=== PATIENT | female | born 1990 | race Hispanic/Latino ===

== ENCOUNTER 2018-09-29 05:38 | Inpatient (IN) | payer BC | END 2018-10-01 12:10 | disposition home or self-care (01) | LOC: LDH 05:38 → WSH 09:35 | PROC: 10D00Z1 Extraction of Products of Conception, Low, Open Approach (ICD-10-PCS; principal; 2018-09-29 07:30) | DX: O24.425 Gestational diabetes mellitus in childbirth, controlled by oral hypoglycemic drugs (principal); O34.211 Maternal care for low transverse scar from previous cesarean delivery; Z37.0 Single live birth; Z3A.38 38 weeks gestation of pregnancy ==

== ENCOUNTER 2024-05-16 17:00 | Inpatient (IN) | payer BC ==
[~2024-05-16] VITALS: Ht 167.6 cm; Wt 117.9 kg
[~2024-05-16 17:00] MED LIST: METF-444 PO; PNV11TAB5 PO
[2024-05-17 06:20] LABS: HEMATOCRIT 35.8 % (36-48); MEAN CORPUSCULAR HEMOGLOBIN 26.5 pg (27.0-33.0); MEAN CORPUSCULAR HGB CONC 32.4 g/dL (32.0-36.0); MEAN CORPUSCULAR VOLUME 81.9 fL (79-99); RED BLOOD CELL COUNT(AUTO) 4.37 MIL/uL (4.00-5.50); RED CELL DISTRIBUTION WIDTH 14.7 % (11.0-15.5); WHITE BLOOD COUNT (AUTO) 8.4 K/uL (4.8-10.8)
[2024-05-17 07:06] LABS: HIV 1&2 ANTIBODY Non-Reactive (Negative); HIV-1 p24 Antigen Non-Reactive (Negative)
[2024-05-17] MEDS: ceFAZolin SODIUM 1 GM VIAL IVP PRN (07:24)
[2024-05-17] MEDS: LACTATED RINGERS 1000ML 1,000 ML IV SCH (07:24)
[2024-05-17] MEDS ORDERED: morPHINE PF 100MG/10ML AMP IV ONE (07:51)
[2024-05-17] MEDS ORDERED: ondanSETRON 4MG INJ ONE (07:59)
[2024-05-17] MEDS: ceFAZolin SODIUM 3 GM VIAL IVPB ONE (08:00)
[2024-05-17] MEDS ORDERED: ePHEDrine SULFate 50 MG/ML AMPULE ONE (08:00)
[2024-05-17] MEDS: CALDOLOR 800MG+NS 250ML 250 ML IV PRN (08:59)
[2024-05-17] MEDS ORDERED: 0.9%NACL 10ML VIAL IVP PRN (09:00)
[2024-05-17] MEDS ORDERED: MEPERIDINE-PF 75 MG/ML SYG IM PRN (09:00)
[2024-05-17] MEDS ORDERED: PROMETHAZINE HCL 25 MG/ML 1ML AMPULE IM PRN (09:00)
[2024-05-17 11:30] VITALS: BP 115/70; PULSE 67; RESP 20; TEMP 97.9
[2024-05-17 13:58] LABS: RAPID PLASMA REAGIN NONREACTIVE (NONREACTIVE)
[2024-05-17 15:40] VITALS: BP 115/71; PULSE 69; RESP 20; TEMP 97.9
[2024-05-17] MEDS: DEXTROSE 5 %-0.45 % NACL 1,000 ML IV PRN (15:49)
[2024-05-17] MEDS: CALDOLOR 800MG+NS 250ML 250 ML IV SCH (16:29)
[2024-05-17 19:30] VITALS: BP 104/66; PULSE 71; RESP 18; TEMP 97.9
[2024-05-18] VITALS (7 sets, daily range): BP systolic 112–127; BP diastolic 56–88; PULSE 76–108; RESP 18–20; TEMP 97.9–98.5
--- NOTE | 2024-05-18 00:13 | OP ---
DATE OF PROCEDURE: 05/17/2024 PREOPERATIVE DIAGNOSES: 1. Intrauterine at 38 weeks and 5 days. 2. Previous section x 2. 3. Maternal obesity. 4. Assisted reproduction. 5. A2 gestational diabetes mellitus. POSTOPERATIVE DIAGNOSES: 1. Intrauterine at 38 weeks and 5 days. 2. Previous section x 2. 3. Maternal obesity. 4. Assisted reproduction. 5. A2 gestational diabetes mellitus. PROCEDURE: Repeat low transverse section via Pfannenstiel. SURGEON: Prerna Grier MD ANESTHESIA: Spinal with Duramorph. COMPLICATIONS: None. QUANTITATIVE BLOOD LOSS: 675 mL. FINDINGS: Viable and vigorous female in cephalic presentation weighing 7 pounds 0.6 ounces (3190 grams) with scores of 8 and 9, clear amniotic fluid. Normal uterus, tubes and ovaries. SPECIMENS: None. Placenta discarded. DESCRIPTION OF PROCEDURE: The patient was taken to the operating room where spinal anesthesia was obtained. She was prepped and draped in the usual sterile fashion in dorsal supine position with a leftward tilt. A timeout was done. Skin was marked. A Pfannenstiel skin incision made with scalpel and it was carried through to underlying layers of fascia with the Bovie. The fascia was incised in the midline and the incision extended laterally. The rectus muscles were dissected off the fascia. Midline was identified. The peritoneum was entered sharply and the abdominal incision extended superiorly and inferiorly with good visualization of the bladder. The Cayetano O retractor was placed into the incision and set for appropriate tension. The vesicouterine peritoneum of lower uterine segment was tented up, incised with the Metzenbaum. The incision extended laterally and the bladder flap created with sharp dissection. The lower uterine segment was then incised in a transverse fashion with the scalpel and the uterine incision extended with digital traction. The surgeon's hand was inserted through the hysterotomy. The infant's head was gently grasped, flexed, brought to the incision. The head was delivered through the incision with the addition of fundal pressure and the remainder of the body delivered without difficulty. The nares and mouth were bulb suctioned. The cord was doubly clamped and cut and the was handed off to waiting nurse. Cord blood was collected for analysis. Placenta was removed manually. The uterus was exteriorized, cleared of all clots and debris with a moist laparotomy sponge until a clean intrauterine cavity was noted. The hysterotomy was then repaired in a running locked fashion using 0 Vicryl and excellent hemostasis was obtained. The posterior aspect of the uterus was examined and found to be without defect. The uterus was returned to the abdomen. The pelvis was copiously irrigated with warm normal saline. The gutters were cleared of all clots and debris. The repaired incision was examined and found to be hemostatic. One sheet of Interceed was placed over the hysterotomy. The peritoneum was then closed in a running fashion using 0 Vicryl. The fascia and rectus muscles were serially inspected. Hemostasis was obtained throughout with the Bovie. The fascia was then closed in a running fashion using looped 0 PDS. The subcutaneous tissue was copiously irrigated with warm normal saline. Excellent hemostasis was obtained throughout with the Bovie. The subcutaneous fat was approximated with simple interrupted stitches of 2-0 Vicryl and the skin was closed in subcuticular fashion using Insorb theodora. The patient tolerated the procedure well. All sponge, lap, needle and instrument counts were correct x 2. The patient received 3 grams of Ancef at the beginning of procedure. She was taken to the recovery room awake in stable condition. TID: [id number] RECEIPT: [id number]
[2024-05-18] MEDS ORDERED: DiphenhydrAMINE HCL 25 MG CAPSULE PO PRN (03:00)
[2024-05-18] MEDS ORDERED: DIPH,PERTUSS(ACELL),TET VAC/PF 0.5 ML VIAL IM SCH (03:00)
[2024-05-18] MEDS ORDERED: LANOLIN 30GM OINTMENT TP PRN (03:00)
[2024-05-18] MEDS ORDERED: acetaMINOPHEN 500 MG TABLET PO PRN (03:00)
[2024-05-18] MEDS ORDERED: acetaMINOPHEN WITH coDEINE 1 TAB TAB PO PRN (03:00)
--- NOTE | 2024-05-18 06:40 | NUR ---
F/C DC'D BY DORETHA (OR NOHEMI), CATHETER TIP INTACT AND ADAMA CARE DONE. PT INST TO CALL FOR ASSIST BEFORE GETTING OUT OF BED, VERBALIZED UNDERSTANDING. Addendum: 05/18/24 at 0704 by WAYNE SOMMER RN RN Amended: Links added.
[2024-05-18 06:46] LABS: HEMATOCRIT 29.5 % (36-48); MEAN CORPUSCULAR HEMOGLOBIN 26.5 pg (27.0-33.0); MEAN CORPUSCULAR HGB CONC 32.2 g/dL (32.0-36.0); MEAN CORPUSCULAR VOLUME 82.4 fL (79-99); RED BLOOD CELL COUNT(AUTO) 3.58 MIL/uL (4.00-5.50); RED CELL DISTRIBUTION WIDTH 14.7 % (11.0-15.5); WHITE BLOOD COUNT (AUTO) 6.7 K/uL (4.8-10.8)
--- NOTE | 2024-05-18 08:50 | NUR ---
PROVIDER AT BEDSIDE DR CARLISLE AT BEDSIDE TO ASSESS PT. PLAN OF CARE DISCUSSED FOR EXPECTATIONS FOR TODAY/TOMORROW. PT TO BE D/C HOME TOMORROW AM. WRITTEN PRESCRIPTION MEDICATIONS REVIEWED WITH PT AND . QUESTIONS INVITED AND ANSWERED. PT AND CONTENT WITH PLAN OF CARE.
[2024-05-18] MEDS ORDERED: BisaCODYL 10 MG SUPP.RECT RC PRN (09:00)
[2024-05-18] MEDS: SIMETHICONE 80 MG TAB.CHEW PO PRN (09:36)
[2024-05-18] MEDS: doCUSate SODIUM 100 MG CAP PO SCH (09:36)
[2024-05-18] MEDS: ibuPROFEN 800 MG TAB PO SCH (09:37)
--- NOTE | 2024-05-18 10:47 | NUR ---
DCP: HOME Sw met with pt and her Rosalio Reddy [phone]. 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 Pt has no govt assistance. Has all basic items for . They own home that meets their needs. OB is Dr Grier and they uses [facility] for rx. Deny dc needs and will return home at dc Addendum: 05/18/24 at 1055 by NGUYỄN WINSLOW SS Amended: Links added.
[2024-05-18] MEDS: DIPH,PERTUSS(ACELL),TET VAC/PF 0.5 ML VIAL IM SCH (16:56)
--- NOTE | 2024-05-18 18:45 | NUR ---
SHIFT CHANGE REPORT GIVEN TO Basim BATES RN FOR CONTINUITY OF PATIENT CARE.
[2024-05-18] MEDS: HYDROcodone/APAP 5/325 1 TAB TABLET PO PRN (20:01)
[2024-05-19 03:48] VITALS: BP 130/70; PULSE 80; RESP 18; TEMP 98.2
[2024-05-19 07:20] VITALS: BP 125/80; PULSE 75; RESP 16; TEMP 97.8
--- NOTE | 2024-05-19 11:40 | NUR ---
DISCHARGE INSTRUCTIONS DISCHARGE INSTRUCTIONS GIVEN, PATIENT VERBALIZED UNDERSTANDING, NO QUESTIONS OR CONCERNS VOICED.
--- NOTE | 2024-05-19 11:50 | NUR ---
FOLLOW UP APPOINTMENT IN [address] CARLISLE ON 06/09/2024 @ 10:30 AM, PLEASE DISREGARD PREVIOUS ENTRY. Addendum: 05/19/24 at 1151 by ROMA SOL RN RN Amended: Links added.
[2024-05-19 12:00] VITALS: BP 125/80; PULSE 75; RESP 16; TEMP 98.1
--- NOTE | 2024-05-19 12:14 | NUR ---
DISCHARGE PATIENT TRANSPORTED VIA WHEELCHAIR BY MIKE Mcginnis CST WITH BABY IN HER ARMS, PATIENT IN STABLE CONDITION. TO DRIVE THEM BOTH HOME.
== END 2024-05-19 12:25 | disposition home or self-care (01) | DRG 788 ==
LOC: LDH 05-17 05:39 → WSH 05-17 11:09
PROVIDERS: ADMIT Obstetrics & Gynecology; ATTEND Obstetrics & Gynecology
PROC: 10D00Z1 Extraction of Products of Conception, Low, Open Approach (ICD-10-PCS; principal; 2024-05-17 07:30)
PROC: 3E0234Z Introduction of Serum, Toxoid and Vaccine into Muscle, Percutaneous Approach (ICD-10-PCS; 2024-05-18)
DX: O24.424 Gestational diabetes mellitus in childbirth, insulin controlled (principal); O69.81X0 Labor and delivery complicated by cord around neck, without compression, not applicable or unspecified; O34.211 Maternal care for low transverse scar from previous cesarean delivery; Z37.0 Single live birth; Z3A.38 38 weeks gestation of pregnancy; O99.214 Obesity complicating childbirth; Z23 Encounter for immunization
CPT/HCPCS: 36415; 59510; 85027; 86592; 86701; 86850; 86900; 86901; 87340; 87390; 90715; A4344; G0378; J0690; J1741; J2274; J2405; J3490; J7042; J7120; A4248; C1765